=== PATIENT | female | born 1970 | race Caucasian/White ===

== ENCOUNTER 2023-06-28 08:26 | Outpatient (CLI) | payer MEDICAID, SELFPAY | END 2023-06-28 08:27 | disposition home or self-care (01) | PROVIDERS: PCP Family Medicine; Visit Provider Family Medicine | DX: E78.5 Hyperlipidemia, unspecified (principal); I10 Essential (primary) hypertension; N95.0 Postmenopausal bleeding; Z13.29 Encounter for screening for other suspected endocrine disorder | CPT/HCPCS: 80053; 80061; 82728; 84443 ==

== ENCOUNTER 2023-06-30 14:41 | Outpatient (CLI) | payer MEDICAID, SELFPAY ==
--- NOTE | 2023-06-30 15:00 | US_ITS ---
Patient: BRYN LANGE Facility:?[facility] R[facility] Patient ID:?[id number] Site Patient ID:?[id number]. Site :?[id number] Study:?US-Pelvis PELVIS TA & TV-06/30/2023 5:07:51 PM Ordering Physician:?LORE THOMPSON M.D. Final Report: INDICATION: Postmenopausal bleeding. TECHNIQUE: Transabdominal and transvaginal scanning was performed. Transvaginal scanning was performed to optimally evaluate the endometrium and adnexa. Ovarian blood flow was evaluated with color-flow doppler. COMPARISON: None. FINDINGS: The postmenopausal uterus is normal in size and shape. The uterus measures 6.8 x 3.7 x 4.2 cm. Pleura is an intramural or subserosal posterior uterine fundal fibroid measuring 1.5 cm is demonstrated as well as an intramural 0.6 cm superior fundal fibroid. The endometrial stripe is normal in thickness at 2 mm. The left ovary is not visualized. The right ovary is normal, measuring 2.2 x 1.7 x 1.2 cm. No adnexal mass is evident. No free fluid is demonstrated. IMPRESSION: Negative postmenopausal pelvic ultrasound except for several small fibroids, as above. Dictated by Yandel Warner MD @ 07/03/2023 7:49:33 AM Signed by:?Yandel Warner MD @07/03/2023 7:49:33 AM (Electronic Signature)
== END 2023-06-30 14:42 | disposition home or self-care (01) ==
LOC: US 14:42
PROVIDERS: PCP Family Medicine; Visit Provider Family Medicine
DX: N95.0 Postmenopausal bleeding (principal); D25.9 Leiomyoma of uterus, unspecified
CPT/HCPCS: 76830; 76856

== ENCOUNTER 2023-09-14 12:30 | Outpatient (RCR) | payer MEDICAID, SELFPAY ==
--- NOTE | 2023-09-07 15:06 | PT.OPEX ---
PT [place] Outpatient Eval PT [facility] Outpatient Eval Start: 09/07/23 12:37 Freq: Status: Active Protocol: Document 09/07/23 12:37 CRP (Rec: 09/07/23 13:37 CRP [id number]) E-signed By Brendan Oreilly PT Physical Therapy Outpatient Evaluation Insurance Information Recert Due Date 12/06/23 Insurance Name Medicaid,[facility] Medical Diagnosis Chronic LBP Referring MD Dr Mathew Subjective Subjective Pt has had many years of on and off again LBP. Goes to chiropractor. Does have daily LBP with burning pain into the hips. Pain can go all the way down either LE to the foot 2-3x/wk. Sleep is now very difficult as well. Had an injection in May. This did help for about a month. Has not done any specific exer for her low back. Pt had surgery to remove 1/2 of her colon in 2017. 2 yrs ago had hernia repairs. Does not feel she has gotten her strength back since the first surgery. Is dealing with diastasis. Works for [employer] at [facility] [employer] [facility]. This is seasonal only during the school year. Will now be off until November. When working she works about 29 hrs/week. Sx get worse with sitting, driving in car, walking/ standing on hard surfaces. Sitting is much more painful than standing and moving around. Pt can only sleep on her back without pain. Sleep is generally difficult. 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 Pts presentation is consistent with mechanical LBP and resulting radicular sxs into bilat LEs. Her status is characterized by painful hypomobility of L3-5, positive adverse neurodynamic signs, trunk weakness most notable with poor lumbopelvic neuromuscular control, loss of trunk ROM and general LE weakness with deconditioning. Skilled PT is necessary to incorporate ther ex, nm yazmin, manual therapy and pt education to decrease pain and improve functional mobility. 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 Pt will be independent with HEP in 8 weeks. 2. Pt will drive car for hour long trips with 80% decrease in pain in 10 weeks. 3. 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 Coordination/Communication With Referral Source Treatment Plan/Direct Interventions Joint Mobilization,Manual Therapy,Neuromuscular Re-ed, Self-Care/Home Management, Therapeutic Activities, Therapeutic Exercises Frequency/Duration 1-2x/wk for 12 weeks Patient Will Be Discharged From Therapy Completion of LTG(s),Skills Plateau,Independent w/HEP, Independently Progressing Evaluation Billing Untimed Code Treatment Minutes 30 Complexity Moderate Certification Information Initial Certification Date 09/07/23 Ending Certification Date 12/06/23 Provider Signature Required Yes Provider Signature Shows Agreement With POC & Medical Necessity Physician NPI Number Write NPI# Here Physician Comment/Change : Physician Signature & Date Requested Please Sign/Date Here
== END 2024-01-12 23:59 | disposition home or self-care (01) ==
PROVIDERS: PCP Family Medicine; Visit Provider Family Medicine
DX: M54.50 Low back pain, unspecified (principal); Z51.89 Encounter for other specified aftercare
CPT/HCPCS: 97110; 97140; 97162

== ENCOUNTER 2023-10-27 14:49 | Outpatient (CLI) | payer MEDICAID, SELFPAY ==
--- OUTSIDE RECORDS SUMMARY | 2023-10-27 14:52 | XMS_ITS | Clinical Summary ---
Author Organization [facility] Address [address] [address] Care Team Providers Care Long Chain Quiller Tender Name Role Phone Clinician, Not Found MD Primary Care Provider Un available Source Comments You are receiving this document as you are listed as the primary care provider,follow-up provider, or the patient has been referred to you for consultation.This is in compliance with the Medicare and[facility] EHR Incentive Program,which states Providers who transition their patient to another setting of careor provider of care or refers their patient to another provider of care shouldprovide summary care record for each transition of care or referral. [facility] Medications No known medications Active Problems No known active problems Social History Tobacco Use Types Packs/Day Years Used Date Smoking Tobacco: Never Assessed Sex and Gender Information Value Date Recorded Sex Assigned at Not on file Gender Identity Not on file Sexual Orientation Not on file Plan of Treatment Upcoming Encounters Date Type Department Care Team (Late st Contact Info) Description 11/15/2023 2:20 PM CDT Appointment [facility] [address] [facility] [place] [address] Elaine Espinoza MD [address] [facility] [place] [address] Health Maintenance Due Date Last Done Comments Cervical Cancer Screening Due 1970 Colon Cancer Screening Plan Due 1970 Hep C Screening (Preventive Services) 1970 Mammogram 1970 HIV Screening (Preventive Services) 1986 Adult Preventive Visit 02/16/1988 HepB (1) 1989 Cholesterol 2015 Zoster/Shingles (2 of 2) 04/29/2021 03/04/2021 COVID-19 Vaccine (5 - season) 2022 01/10/2022, 02/22/2021, 06/25/2020, Additional history exists Influenza (#1) 2023 01/10/2022, 12/0 10/2020, 11/29/2018, Additional history exists DTaP/Tdap/Td (3 - Tdap) 06/30/2027 06/30/19 18, 09/11/2010, 02/23/2000 HepA Aged Out No longer eligi ble based on patient's age to complete this topic Hib Aged Out No longer eligi ble based on patient's age to complete this topic IPV (Polio) Aged Out No longer eligi ble based on patient's age to complete this topic MCV4 Aged Out No longer eligi ble based on patient's age to complete this topic Pneumococcal Aged Out No longer eligi ble based on patient's age to complete this topic Care Teams Long Chain Quiller Tender Relationship Specialty Start Date End Date Clinician, Not Found, [facility] [place] [address] PCP - General 10/26/23
--- NOTE | 2023-10-27 15:00 | CRLHL7_ITS ---
For Patients: As a result of the Century Cures Act, medical imaging exams and procedure reports are released immediately into your electronic medical record. You may view this report before your referring provider. If you have questions, please contact your health care provider. BILATERAL SCREENING MAMMOGRAM WITH COMPUTER-AIDED DETECTION AND TOMOSYNTHESIS TECHNIQUE: CC and MLO views were obtained. These mammographic images have been obtained using full-field digital technique. These mammographic images were interpreted with the benefit of computer-aided detection. Breast tomosynthesis was used in this interpretation. COMPARISON FILM: None. This is a baseline study. FINDINGS: There are scattered areas of fibroglandular density. IMPRESSION: There is no radiographic evidence for malignancy. ASSESSMENT: BI-RADS Category 1: Negative RECOMMENDATION: Routine screening mammogram in 1 year. A lay language report of this examination will be provided to the patient. BOLA JOLLY M.D. Diagnostic Radiologist [email or web address] Transcribed: 1:[address]/Dictated by: Bola Jolly MD @ 10/28/2023 11:32:00 AM (Electronically Signed)
== END 2023-10-27 14:50 | disposition home or self-care (01) ==
LOC: MAMMO 14:50
PROVIDERS: PCP Family Medicine; Visit Provider Family Medicine
DX: Z12.31 Encounter for screening mammogram for malignant neoplasm of breast (principal)
CPT/HCPCS: 77063; 77067

== ENCOUNTER 2023-11-02 07:42 | Outpatient (CLI) | payer MEDICAID, SELFPAY ==
--- OUTSIDE RECORDS SUMMARY | 2023-11-06 06:52 | XMS_ITS | Clinical Summary ---
Author Organization [facility] Address [address], [place] [address] Care Team Providers Care Machine Brusher Name Role Phone Clinician, Not Found MD Primary Care Provider Un available Source Comments You are receiving this document as you are listed as the primary care provider,follow-up provider, or the patient has been referred to you for consultation.This is in compliance with the Medicare and[facility] Healthcaid EHR Incentive Program,which states Providers who transition [...] PM CDT Appointment [facility] [address] [place] [address] Elaine Espinoza MD [address] [facility] [place] [address] Health Maintenance Due Date Last Done Comments [...] age to complete this topic Care Teams Machine Brusher Relationship Specialty Start Date End Date Clinician, Not Found, [facility] [place] [address] PCP - General 10/26/23
== END 2023-11-02 07:43 | disposition home or self-care (01) ==
LOC: NFLDREF 11-06 06:50
PROVIDERS: PCP Family Medicine; Referring Provider Family Medicine; Visit Provider Family Medicine
DX: I10 Essential (primary) hypertension (principal); K76.0 Fatty (change of) liver, not elsewhere classified; E78.5 Hyperlipidemia, unspecified
CPT/HCPCS: 80053; 80061

== ENCOUNTER 2024-02-09 06:02 | Day surgery (SDC) | payer MEDICAID, SELFPAY ==
--- OUTSIDE RECORDS SUMMARY | 2024-02-09 06:04 | XMS_ITS | Encounter Summary ---
Author Organization [facility] Address [address] [address] Care Team Providers Care Pin Chaser Name Role Phone Clinician, Not Found MD Primary Care Provider Un available Reason for Referral * (Routine) - New Request Specialty Diagnoses / Procedures Referred By Contac t Referred To Contact Diagnoses Tendinopathy of gluteal region Procedures Triamcinolone Acet Inj Nos: (per 10 mg) Elaine Arboleda MD [address] [place] [address] [place] [id number] Referral ID Status Reason Start Date Expiration Date V isits Requested Visits Authorized [id number] New Request 11/15/2023 02/13/2025 1 1 Reason for Visit * Reason Comments HIP PAIN Encounter Details Date Type Department Care Team (Late st Contact Info) Description 11/15/2023 2:20 PM CDT Office Visit [facility] [address] [place], [place] [address] Elaine Arboleda MD [address] [place] [address] [place] [id number] Tendinopathy of gluteal region (Primary Dx); Lumbar radiculopathy Social History Tobacco Use Types Packs/Day Years Used Date Smoking Tobacco: Never Assessed Sex and Gender Information Value Date Recorded Sex Assigned at Not on file Gender Identity Not on file Sexual Orientation Not on file documented as of this encounter Progress Notes * Elaine Arboleda MD - 11/15/2023 12:00 AM CDT NAME: BRYN PAREKH CSN: [id number] CLINIC NOTE DATE OF SERVICE: 11/15/2023 : 1970 CHIEF COMPLAINT: Bilateral hip pain. HPI: This 53-year-old female returns today to follow up on her bilateral hip pain and chronic low back pain. Our last visit was on 05/30/2023, at which time she received bilateral trochanteric area steroid injections which were helpful. However, they only seem to last for about 3 months and now pain has been returning, left much worse than right. She is also still having numbness that radiates down the lateral leg towards her foot. She did 5 sessions of physical therapy, but symptoms persist. She would like to repeat a left trochanteric area steroid injection today. PROCEDURE NOTE: After a discussion of risks, benefits and side effects, the patient consented to a left trochanteric area steroid injection. Under sterile technique, 4 mL of 0.5% ropivacaine and 1 mLof triamcinolone 40 mg/mL were injected into the left trochanteric area. The procedure was well-tolerated and without complication. ASSESSMENT: 1.Bilateral gluteal tendinopathy, left greater than right today, status post left trochanter steroid injection. 2.Chronic low back pain with possible left L5 radiculopathy. PLAN: 1.Discussed diagnosis and treatment strategy. 2.Continue physical therapy home exercise program. 3.Recommended proceeding with an MRI of the lumbar spine and then consulting in our Spine [facility]. Consider epidural steroid injection if appropriate. 4.Continue activity as tolerated and symptomatic care measures as needed. ELAINE ARBOLEDA MD HLSheri/LEXIE /[id number] documented in this encounter Plan of Treatment Not on file documented as of this encounter Visit Diagnoses Diagnosis Tendinopathy of gluteal region- Primary Lumbar radiculopathy Thoracic or lumbosacral neuritis or radiculitis, unspecified documented in this encounter Care Teams Pin Chaser Relationship Specialty Start Date End Date Clinician, Not Found, [place] [address] PCP - General 10/26/23 documented as of this encounter
--- OUTSIDE RECORDS SUMMARY | 2024-02-09 06:04 | XMS_ITS | Clinical Summary ---
Author Organization [facility] Address [address], [place] [address] Care Team Providers Care Tool Grinder Name Role Phone Clinician, Not Found MD Primary Care Provider Un available Source Comments You are receiving this document as you are listed as the primary care provider,follow-up provider, or the patient has been referred to you for consultation.This is in compliance with the Medicare andMedicaid EHR Incentive Program,which states Providers who transition their patient to another setting of careor provider of care or refers their patient to another provider of care shouldprovide summary care record for each transition of care or referral. [facility] Medications No known medications Active Problems No known active problems Encounters Date Type Department Care Team Description 11/15/2023 2:20 PM CDT Office Visit [facility] [address] [place], [place] [address] Elaine Espinoza MD Tendinopathy of gluteal region (Primary Dx); Lumbar radiculopathy from Last 3 Months Social History Tobacco Use Types Packs/Day Years Used Date Smoking Tobacco: Never Assessed Sex and Gender Information Value Date Recorded Sex Assigned at Not on file Gender Identity Not on file Sexual Orientation Not on file Plan of Treatment Health Maintenance Due Date Last Done Comments Cervical Cancer Screening Due 1970 Colon Cancer Screening Plan Due 1970 Hep C Screening (Preventive Services) 1970 Mammogram 1970 HIV Screening (Preventive Services) 1986 Adult Preventive Visit 02/16/1988 HepB (1) 1989 Cholesterol 2015 COVID-19 Vaccine ( season) 2023 01/10/2022, 02/22/2021, 06/25/2020, Additional history exists Influenza (#1) 2023 01/10/2022, 12/0 10/2020, 11/29/2018, Additional history exists DTaP/Tdap/Td (3 - Tdap) 06/30/2027 06/30/19 18, 09/11/2010, 02/23/2000 Zoster/Shingles Completed 08/09/2023, 03/04/2021 HepA Aged Out No longer eligi ble based on patient's age to complete this topic Hib Aged Out No longer eligi ble based on patient's age to complete this topic IPV (Polio) Aged Out No longer eligi ble based on patient's age to complete this topic Infant RSV Aged Out No longer eligi ble based on patient's age to complete this topic MCV4 Aged Out No longer eligi ble based on patient's age to complete this topic Pneumococcal Aged Out No longer eligi ble based on patient's age to complete this topic Care Teams Tool Grinder Relationship Specialty Start Date End Date Clinician, Not Found, [facility] [place] [address] PCP - General 10/26/23
[2024-02-09 06:20] VITALS: BMI 34.2
[2024-02-09 06:26] VITALS: BP 111/92; PULSE 82; RESP 16; TEMP 36.8; O2SAT 94
[2024-02-09] MEDS: SODIUM CHLORIDE 0.9 % (FLUSH) 10 ML SYRINGE IVF (06:30)
[2024-02-09 06:40] LABS: Hemoglobin* 12.9 gm/dL (12.0-16.0)
[2024-02-09 06:55] LABS: Creatinine* 0.5 mg/dL (0.5-1.5); Est. Creatinine Clearance* 121.81; Estimated Glomerular Filt Rate 112 ml/min
--- NOTE | 2024-02-09 06:57 | W.PM.H&PU ---
History & Physical Update History & Physical Update H&P Reviewed and patient assessed: No changes noted H&P Updates: No more bleeding PV since last we saw each other in clinic.
--- NOTE | 2024-02-09 07:13 | W.PM.GYNPROC ---
Procedure Note Time Seen by Provider: 07:15 Date of procedure: 02/09/24 Will [facility] bill your pro fee for this procedure?: Yes Pre-op diagnosis: 1. Postmenopausal bleeding Post-op diagnosis: 1. Postmenopausal bleeding Procedure: 1. Hysteroscopy 2. Dilation and curettage Anesthesia: MAC Complications: None Surgeon: Eugenie Rodriguez MD IV fluids (mL): 0 Urine Output (mL): 25 Pathology: specimen obtained, sent to pathology Condition: stable Disposition: PACU Procedure Description: Estimated blood loss: <5 mL Specimen: Endometrial curettings to pathology. Findings: Exam under anesthesia: Cervix palpates normal and small. Uterus: Anteverted position, mobile, without nodularity/masses palpable. Adnexa were without fullness or nodularity. On hysteroscopy: Normal appearing endometrial cavity with atrophic endometrium. Arcuate at the fundus. Normal bilateral tubal ostia Procedure: Toyin was taken to the operating where conscious sedation was found to be adequate. She was placed in the dorsal lithotomy position. An exam under anesthesia was performed with findings stated above. She was then prepped and draped in normal sterile manner. A bivalve metal speculum was placed in the vaginal canal. The cervix and vaginal canal appear normal. The anterior lip of the cervix was then grasped with a long Allis clamp. The cervix was dilated to Hegar 6. The uterus sounded to 7 cm. The hysteroscope advanced into the uterus and a diagnostic hysteroscopy was performed with findings stated above. Normal saline was used as the insufflation medium. Soft tissue shaver was used to perform global curetting. The uterus and documented a normal appearing uterine cavity at the end of the procedure. Fluid deficit at the end of the procedure 170 mL. Total fluid: 590 mL The hysteroscope and tenaculum clamp were removed from the uterus and cervix. Excellent hemostasis noted. Nothing was used for hemostasis. The patient tolerated the procedure well. Sponge, lap and instruments counts were correct at the end of the procedure. The patient was awakened from anesthesia and taken to the recovery area in stable condition. Surgical debrief performed at the end of the procedure.
[2024-02-09 08:04] VITALS: BP 138/85; PULSE 82; RESP 14; TEMP 36.2; O2SAT 94
--- NOTE | 2024-02-09 08:04 | W.ANESCHARGE ---
Anesthesia Charges Start Date/Time Anesthesia Start Date: 02/09/24 Anesthesia Start Time: 07:12 Stop Date/Time Anesthesia Stop Date: 02/09/24 Anesthesia Stop Time: 08:04
--- NOTE | 2024-02-09 08:14 | W.ANESCHARGE ---
Anesthesia Charges Start Date/Time Anesthesia Start Date: 02/09/24 Anesthesia Start Time: 07:12 Stop Date/Time Anesthesia Stop Date: 02/09/24 Anesthesia Stop Time: 08:04
[2024-02-09 08:15] VITALS: BP 131/88; PULSE 79; RESP 16; O2SAT 93
[2024-02-09] MEDS: ACETAMINOPHEN 500 MG TABLET 1000 MG PO (08:24)
[2024-02-09 08:30] VITALS: BP 122/81; PULSE 82; RESP 16; O2SAT 95
[2024-02-09 08:45] VITALS: BP 126/78; PULSE 74; RESP 16; O2SAT 93
== END 2024-02-09 09:00 | disposition home or self-care (01) ==
LOC: OR 06:03
PROVIDERS: PCP Family Medicine; Visit Provider Obstetrics & Gynecology
PROC: 0UDB8ZZ Extraction of Endometrium, Via Natural or Artificial Opening Endoscopic (ICD-10-PCS; CPT 58558; principal; 2024-02-09 07:15)
DX: N95.0 Postmenopausal bleeding (principal); N85.8 Other specified noninflammatory disorders of uterus
CPT/HCPCS: 58558; 00952; 36415; 82565; 85018; 86850; 86900; 86901; 88305; A9270; C1782; J1100; J1885; J2405; J2704; J3010

== ENCOUNTER 2024-02-28 20:10 | Outpatient (CLI) | payer MEDICAID, SELFPAY ==
--- OUTSIDE RECORDS SUMMARY | 2024-02-28 20:19 | XMS_ITS | Clinical Summary ---
Author Organization [facility] Address [address], [place] [address] Care Team Providers Care Pyrotechnist Name Role Phone Clinician, Not Found MD Primary Care Provider Un available Source Comments You are receiving this document as you are listed as the primary care provider,follow-up provider, or the patient has been referred to you for consultation.This is in compliance with the Medicare and[facility] EHR Incentive Program,which states Providers who transition [...] on patient's age to complete this topic RSV Aged Out No longer eligi ble based on patient's age to complete this topic MCV4 Aged Out No longer eligi ble based on patient's age to complete this topic Pneumococcal Aged Out No longer eligi ble based on patient's age to complete this topic Care Teams Pyrotechnist Relationship Specialty Start Date End Date Clinician, Not Found, [place] [address] PCP - General 10/26/23
--- NOTE | 2024-03-07 08:26 | W.PM.SLEEP ---
Sleep Study Details Details Interpreting Provider: Jairo Date of Sleep Study: 02/28/24 Sleep Study Details: STUDY TYPE:? Hospital-based, attended, CPAP titration ? BMI:? 35.2 ORDERING PROVIDER:? Priyanka INDICATION:? Concern about sleep apnea ? SLEEP SUMMARY:? 358 minutes total sleep time RESPIRATORY SUMMARY:? Mean oxygen awake 91 asleep 89, minimum 81 97.9 minutes oxygen between 80 and 88% AHI 112.4, supine 203, nonsupine 106 there was no REM stage sleep seen during the diagnostic portion of the study. CPAP titration was attempted a pressure of 18 the patient's AHI decreased to 0 and supine REM sleep was seen. This would be considered a successful titration PERIODIC LIMB MOVEMENTS OF SLEEP:? None CARDIAC:? Awake 85, asleep 86. No arrhythmias noted IMPRESSION:? Very severe obstructive sleep apnea with supine position dependency. CPAP titration was successful at a pressure of 18 and included supine REM sleep. RECOMMENDATION: Initiate CPAP and AutoSet pressure of 15-18. The patient does not tolerate CPAP would switch to bilevel.
== END 2024-02-28 20:11 | disposition home or self-care (01) ==
LOC: SLEEP 20:18
PROVIDERS: PCP Family Medicine; Visit Provider Family Medicine
DX: G47.33 Obstructive sleep apnea (adult) (pediatric) (principal); G47.31 Primary central sleep apnea
CPT/HCPCS: 95811

== ENCOUNTER 2024-03-12 10:32 | Outpatient (CLI) | payer SELFPAY | END 2024-03-12 10:33 | disposition home or self-care (01) | LOC: NFLDREF 10:32 | PROVIDERS: PCP Family Medicine; Visit Provider Obstetrics & Gynecology | DX: R23.2 Flushing (principal) | CPT/HCPCS: 80053 ==

== ENCOUNTER 2024-03-15 13:19 | Outpatient (CLI) | payer OTHER, SELFPAY ==
--- NOTE | 2024-03-15 13:45 | CRLHL7_ITS ---
For Patients: As a result of the 21st Century Cures Act, medical imaging exams and procedure reports are released immediately into your electronic medical record. You may view this report before your referring provider. If you have questions, please contact your health care provider. EXAM: MRI OF THE RIGHT ANKLE, WITHOUT CONTRAST CLINICAL INDICATION: Ankle pain swelling. COMPARISON PLAIN FILMS: 02/17/2024. COMPARISON CROSS-SECTIONAL IMAGING STUDIES: None. TECHNICAL: Axial, sagittal and coronal T1, PD, PD FS and STIR images. FINDINGS: OSSEOUS STRUCTURES: Small cortical avulsion fracture with periosteal injury and periosteal thickening in the posterior malleolus accounts for the radiographic abnormality. Findings consistent with the high-grade syndesmotic injury. No additional fractures are evident. No osseous lesion. JOINT SPACES: Large ankle joint effusion with mild synovitis. No loose body. The articular cartilage is intact. The subtalar joints are maintained. The talonavicular and calcaneocuboid joint spaces are maintained. Joint spaces within the visualized midfoot and at the midfoot forefoot junction are maintained. LIGAMENTS: Syndesmotic Ligaments: There is a full-thickness tear of the anterior inferior tibiofibular ligament at the tibial insertion with diffuse thickening and heterogeneity of the ligament. There is an additional injury of the interosseous membrane and posterior inferior tibiofibular ligament and the posterior malleolar periosteum. Lateral Ligaments: The anterior talofibular ligament is intact. The calcaneofibular ligament is intact. The posterior talofibular ligament is intact. Medial Ligaments: The superficial and deep components of the deltoid ligament complex are maintained. Spring Ligaments: The calcaneonavicular spring ligament complex is intact. TENDONS: Flexor Tendons: The posterior tibial, flexor digitorum longus and flexor hallucis longus tendons are intact. Extensor Tendons: The anterior extensor tendons are intact. Achilles Tendon: The Achilles tendon is intact without tendinosis, tear or peritendinitis changes. Peroneal Tendons: Partial-thickness longitudinal tear of the peroneus brevis tendon at and distal to the retromalleolar groove with mild tendinopathy. The peroneus longus tendon is intact. No tenosynovitis. No subluxation of the peroneal tendons. TARSAL TUNNEL: The soft tissues of the tarsal tunnel are normal without mass or fluid collection. No abnormality along the course of the medial or lateral plantar nerves. SINUS TARSI: The structures of the sinus tarsi appear normal. No disruption of the interosseous ligaments or significant effacement of fat. PLANTAR SOFT TISSUES: The plantar fascia is intact. No atrophy or edema of the abductor digiti minimi muscle belly. SOFT TISSUES: Prominent anterolateral and moderate medial subcutaneous edema. IMPRESSION: 1. High-grade syndesmotic injury with tear of the anterior inferior tibiofibular ligament, distal syndesmosis, posterior inferior tibiofibular ligament and small avulsion fracture with periosteal injury in the posterior malleolus. 2. Large ankle joint effusion with mild synovitis. 3. Medial and lateral subcutaneous edema. Dictated by Jeromy Mendosa MD @ 03/16/2024 11:39:41 AM (Electronically Signed)
== END 2024-03-15 13:20 | disposition home or self-care (01) ==
PROVIDERS: PCP Family Medicine; Visit Provider Family Medicine
DX: M25.571 Pain in right ankle and joints of right foot (principal); S93.431A Sprain of tibiofibular ligament of right ankle, initial encounter; M25.471 Effusion, right ankle; S82.891A Other fracture of right lower leg, initial encounter for closed fracture; S99.911A Unspecified injury of right ankle, initial encounter; M95.8 Other specified acquired deformities of musculoskeletal system
CPT/HCPCS: 73721

== ENCOUNTER 2024-05-23 10:05 | Outpatient (CLI) | payer MEDICAID, SELFPAY | END 2024-05-23 10:06 | disposition home or self-care (01) | PROVIDERS: PCP Family Medicine; Visit Provider Family Medicine | DX: M54.16 Radiculopathy, lumbar region (principal); M51.26 Other intervertebral disc displacement, lumbar region; M48.061 Spinal stenosis, lumbar region without neurogenic claudication; R29.898 Other symptoms and signs involving the musculoskeletal system | CPT/HCPCS: 72148 ==

== ENCOUNTER 2024-09-04 10:51 | Outpatient (CLI) | payer MEDICAID, SELFPAY | END 2024-09-04 10:52 | disposition home or self-care (01) | LOC: INJ CL 10:52 | PROVIDERS: PCP Family Medicine; Visit Provider Family Medicine | DX: M54.16 Radiculopathy, lumbar region (principal); M48.062 Spinal stenosis, lumbar region with neurogenic claudication; M51.369 Other intervertebral disc degeneration, lumbar region without mention of lumbar back pain or lower extremity pain | CPT/HCPCS: 62323; J0702; Q9966 ==

== ENCOUNTER 2024-09-10 11:10 | Outpatient (CLI) | payer MEDICAID, SELFPAY | END 2024-09-10 11:11 | disposition home or self-care (01) | LOC: NFLDREF 09-14 08:51 | PROVIDERS: PCP Family Medicine; Referring Provider Family Medicine; Visit Provider Family Medicine | DX: Z00.00 Encounter for general adult medical examination without abnormal findings (principal); I10 Essential (primary) hypertension; E78.5 Hyperlipidemia, unspecified; R73.01 Impaired fasting glucose; R79.89 Other specified abnormal findings of blood chemistry; E66.9 Obesity, unspecified; R74.8 Abnormal levels of other serum enzymes; Z11.59 Encounter for screening for other viral diseases | CPT/HCPCS: 80053; 80061; 86803; 87340 ==

== ENCOUNTER 2024-09-25 09:09 | Outpatient (CLI) | payer MEDICAID, SELFPAY ==
--- NOTE | 2024-09-25 09:15 | CRLHL7_ITS ---
For Patients: As a result of the Century Cures Act, medical imaging exams and procedure reports are released immediately into your electronic medical record. You may view this report before your referring provider. If you have questions, please contact your health care provider. INDICATION: Abnormal lab values COMPARISON: none TECHNIQUE: Real time barnard scale imaging and color Doppler analysis was performed of the right upper quadrant. FINDINGS: The liver measures 18.6 cm. Liver echotexture is diffusely increased. There is a normal appearance of the hepatic IVC and proximal abdominal aorta. There is no evidence of ascites. The gallbladder is of normal size and there is no evidence of intraluminal stones or sludge. The gallbladder wall measures 3 mm in thickness. The common bile duct is of normal size and measures 4 mm in diameter at the level of the jaylen hepatis. The pancreas is not visualized due to overlying bowel gas. There is no evidence of a stone or hydronephrosis within the right kidney. The right kidney measures 10.9 cm in length. IMPRESSION: Hepatomegaly with severe diffuse hepatic steatosis. Dictated by Bola Rojas MD @ 09/25/2024 12:02:15 PM (Electronically Signed)
--- OUTSIDE RECORDS SUMMARY | 2024-09-26 00:48 | XMS_ITS | Clinical Summary ---
Author Organization [facility] Address [address], [place] [address] Care Team Providers Care Race And Sports Book Writer Name Role Phone Clinician, Not Found MD Primary Care Provider Un available Source Comments You are receiving this document as you are listed as the primary care provider,follow-up provider, or the patient has been referred to you for consultation.This is in compliance with the Medicare and[facility] EHR Incentive Program,which states Providers who transition their patient to another setting of careor provider of care or refers their patient to another provider of care shouldprovide summary care record for each transition of care or referral. 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 Gender Identity Not on file Sexual Orientation Not on file Plan of Treatment Health Maintenance Due Date Last Done Comments Cervical Cancer Screening Due 1970 Colon Cancer Screening Plan Due 1970 Hep C Screening (Preventive Services) 1970 Mammogram 1970 HIV Screening (Preventive Services) 1986 Adult Preventive Visit 02/16/1988 HepB Vaccine (1) 1989 Cholesterol 2015 Pneumococcal Vaccine 50+ Yrs (1 of 1 - PCV) 02/16/2020 COVID-19 Vaccine ( season) 2023 01/10/2022, 02/22/2021, 06/25/2020, Additional history exists Influenza Vaccine (Season Ended) 2024 01/10/2022, 03/04/2021, 11/29/2018, Additional history exists DTaP/Tdap/Td Vaccine (3 - Tdap) 06/30/2027 06/29/2017, 09/11/2010, 02/23/2000 Zoster/Shingles Vaccine Completed 08/09/2023, 03/04 HepA Vaccine Aged Out No longer eligi ble based on patient's age to complete this topic Hib Vaccine Aged Out No longer eligi ble based on patient's age to complete this topic IPV (Polio) Vaccine Aged Out No longe r eligible based on patient's age to complete this topic MCV4 Vaccine Aged Out No longer eligi ble based on patient's age to complete this topic Meningococcal B Vaccine Aged Out No l onger eligible based on patient's age to complete this topic Insurance [facility] Care Teams Race And Sports Book Writer Relationship Specialty Start Date End Date Clinician, Not Found, [place] [address] PCP - General 10/26/23
--- OUTSIDE RECORDS SUMMARY | 2024-09-26 00:48 | XMS_ITS | Clinical Summary ---
Author Organization [facility] Address [address] [place] [address] Care Team Providers Care Baggage Agent Name Role Phone Kaley Mathew MD Primary Care Provider + Jimmy Montalvo MD Unavailable [phone] Allergies Active Allergy Reactions Criticality Noted Date Comments Azithromycin Rash 12/20/2018 Medications traMADol (ULTRAM) 50 mg tabletIndication s:Abdominal pain, unspecified abdominal location,Periumb ilical hernia Take 1 tablet by mouth every 6 hours if needed for Pain. 8 tablet 12/20/2018 8:12 PM CDT 12/20/2018 Active Active Problems No known active problems Encounters Date Type Department Care Team Description 09/04/2024 11:20 AM CDT Office Visit [facility] [address] [place] [id number] Jeromy Johnson MD Procedure (L3-4 ILESI) 08/15/2024 Transcribe Orders [facility] [address] [place] [address] Jeromy Johnson MD 08/15/2024 Telephone [facility] [address] [place] [address] Jeromy Johnson MD Error-please disregard from Last 3 Months Social History Tobacco Use Types Packs/Day Years Used Date Smoking Tobacco: Never Assessed Comments No Sex and Gender Information Value Date Recorded Sex Assigned at Not on file 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 Gender Identity Not on file Sexual Orientation Not on file Obstetrics History Last Filed Vital Signs Vital Sign Reading Time Taken Comments Blood Pressure 154/99 12/20/2018 2:28 PM CDT Pulse 91 12/20/2018 2:28 PM CDT Temperature 36.4 C (97.5 F) 12/20/2018 2:28 PM CDT Respiratory Rate 16 12/20/2018 2:28 PM CDT Oxygen Saturation 95% 12/20/2018 2:28 PM CDT Inhaled Oxygen Concentration - - Weight 90.7 kg (200 lb) 12/20/2018 2:28 PM CDT Height 167.6 cm (5' 6) 12/20/2018 2:28 PM CDT Body Mass Index 32.28 12/20/2018 2:28 PM CDT Plan of Treatment Health Maintenance Due Date Last Done Comments (IA) Tdap 1981 Depression screening for age 12+ 1982 HIV for age 15-65 1985 BMI (ht and wt on same day) for age 18+ 02/16/1988 Hepatitis C screening for ag e 18-79 02/16/1988 Hepatitis B series for 19+ ( 1 of 3 - 19+ 3-dose series) 1989 Tetanus booster 1990 Colonoscopy through age 75 2015 Lipids for age 45-75 2015 Mammogram for age 45-75 2015 Pneumococcal series for age 50+ (1 of 1 - PCV) 02/16/2020 Zoster (shingles) series for age 50+ (1 of 2) 02/16/2020 Influenza Vaccine (Season Ended) 2024 Pap test for age 21-65 08/08/2026 08/09/2023, 2023 COVID-19 vaccine series Completed 01/03/20 24, 01/10/2022, 02/22/2021, Additional history exists Procedures Procedure Name Priority Date/Time Associated Diagnosis Comments AMB EPIDURAL STEROID INJECTION Routine 09/04/2024 12:00 AM CDT Spinal stenosis, lumbar region, with neurogenic claudication HPV HIGH RISK Routine 08/09/2023 1:22 PM CDT from Last 3 Months or Most Recently Relevant to Health Maintenance Results * AMB EPIDURAL STEROID INJECTION (09/04/2024 12:00 AM CDT) Jeromy Johnson MD NEUROLOGY ORD Final Resu lt * HPV HIGH RISK (08/09/2023 1:22 PM CDT) TYPE 16 Negative Negative 08/12/2023 11:45 AM CDT [facility] TYPE 18 Negative Negative 08/12/2023 11:45 AM CDT [facility] OTHER HIGH RISK TYPES Negative Negative 08/12/2023 11:45 AM CDT [facility] Other (Cervical/Vagina l) 08/09/2023 1:22 PM CDT 08/10/2023 5:01 PM CDT Narrative [facility] - 08/12/2023 11:45 AM CDT HPV types 16, 18, 31, 33, 35, 39, 45, 51, 52, 56, 58, 59, 66 and 68 DNA were undetectable or below the pre-set threshold. Methodology: Rosibel Carlyle 4800 HPV Test us Kaley Mathew MD MICROBIOLOGY Final Re sult [facility] [address] [place] [address], from Last 3 Months or Most Recently Relevant to Health Maintenance Insurance [facility] Care Teams Baggage Agent Relationship Specialty Start Date End Date Kaley Mathew MD [address] [place] [address] PCP - General Family Practice 08/15/24 Jimmy Montalvo MD [address] [place] [id number] Family Practice 08/15/24
--- OUTSIDE RECORDS SUMMARY | 2024-09-26 00:48 | XMS_ITS | Patient Health Record ---
Author Organization [facility] Address [address] [id number] Care Team Providers Care Ropewalk Rope Maker Name Role Phone Tori Morales Primary Care Provider Allergies Allergen (clinical drug ingredient) Drug/Non Drug Allergy documented on EMR Reaction Allergy Type Onset Date Status penicillin V Penicillin V Potassium Unknown Drug Allergy Active erythromycin Erythromycin erythromycin GI upset, can tolerate azithromycin Drug Allergy Active Reason For Referral No Information Medications Medication SIG (Take, Route, Frequency, Duration) Notes Start Date End Date Status Dicyclomine HCl 10 MG 1 cap(s) orally 3 times a day as needed Not-Taking amLODIPine Besylate 5 MG TAKE 1 TABLET B Y MOUTH EVERY DAY; Duration: 30 Active Pantoprazole Sodium 40 MG 1 tab(s) orall y once a day; Duration: 30 days 10/11/2018 Active ProAir HFA 108 (90 Base) MCG/ACT 2 puff(s) inhaled every 4 hours as needed for cough or shortness of breath 05/29/2018 Not-Taking Lansoprazole 30 MG 1 cap(s) orally once a day Not-Taking Citalopram Hydrobromide 40 MG 1 tab(s) orally once a day; Duration: 90 days Active Ibuprofen 200 MG 4 tab(s) orally ever y 6 hours as needed Active Immunizations Vaccine Route Administration Date Status Comme nts Tdap (Adacel 11-64 yrs) IM Intramuscular 09/11/2010 Admini stered Td (7 yrs and Older) Unknown 02/23/2000 Administered Td (7 yrs and Older) IM Intramuscular 06/29/2017 Administe red MMR Unknown 12/06/1990 Administered Influenza 6 months and older WITH Preservative Unknown 12/08/2016 Administered Influenza 6 months and older WITH Preservative IM Intramuscular 11/29/2018 Administered Influenza (Flulaval) 3 years and up WITH preservative Unknown 03/20/2016 Administered Social History Tobacco Use: Social History Observation Description Date Details (start date - stop date) Never Smoker NA - NA Tobacco Status Question Answer Notes I am: never smoker Problems Problem Type SNOMED Code ICD Code Onset Dates Problem Status W/U Status Risk Notes Problem Recurrent major depression in complete remission (64541507) Major depressive disorder, recurrent episode, in full remission (F33.42) Active confirmed Problem Vitamin D deficiency (49013806) Vitamin D deficiency (E55.9) Active confirmed Problem Menopause (214137471) Perimenopausal vasomotor symptoms (N95.1) Active confirmed Problem Benign essential hypertension (4338385) Benign essential hypertension (I10) Active confirmed Problem Thrombocytopenia (859439086) Thrombocytopenia (D69.6) Active confirmed Problem Gastro-esophageal reflux disease without esophagitis (220401763) Gastro-esophageal reflux disease without esophagitis (K21.9) Active confirmed Problem Steatosis (04799566) Steatosis (E78.89) Active confirmed Problem Degeneration of cervical intervertebral disc (70588390) Degenerative disc disease, cervical (M50.30) Active confirmed Problem Stomach upset (661786318) Stomach upset (K30) Active confirmed Problem Hemorrhage of colon due to diverticulosis (211238615821260) Diverticulosis large intestine w/o perforation or abscess w/bleeding (K57.31) Active confirmed Problem Gastroesophageal reflux disease with esophagitis (disorder) (477486440) GERD with esophagitis (K21.0) Active confirmed Problem Constipation (37824932) Constipation, unspecified constipation type (K59.00) Active confirmed Problem Cervical post-laminectomy syndrome (224433501) Cervical post-laminectomy syndrome (M96.1) Active confirmed Problem Irritable bowel syndrome (13923594) Irritable bowel syndrome with both constipation and diarrhea (K58.2) Active confirmed Problem History of excision of intestinal structure (560332400) Status post laparoscopic-santino lavell sigmoidectomy (Z90.49) Active confirmed Problem Postprocedural states (996033460) History of thumb surgery (Z98.890) Active confirmed Plan Of Treatment No Information Insurance Providers Payer Name Payer Address Payer Phone Subscriber Number Group Number Insured Name Patient Relationship to Insured Coverage Start Date Coverage End Date [facility] [address] [place], [place] [id number] Shital Parekh Self - patient is the insured 3 Medical (General) History Medical History History ICD Code Esophageal reflux depression anxiety diverticulitis Surgical History Surgery Date(Month/Year) UCL repair, right thumb 11/15/2022 Incarcerated ventral incisio nal herniorrhaphy scopic with lysis of adhesions 01/11/2019 Laminotomy/Foraminotomy/ Decompression ( cervical) 05/26/17 polyp removal 05/26/2016 No personal or family history of anesthe kianna problems Sigmod colectomy with explor atory laparotomy, mobilization of splenic flexure with primary colorectostomy and anal exam. 03/18/2016 septoplasty and sinus surgery 2007 Augmentation mammoplasty 1997 No personal or family history of bleedin g problems Hospitalization History Reason Date(Month/Year) Hypertension 06/21-06/22/2016 ER visit [facility] 12/2018
== END 2024-09-25 09:10 | disposition home or self-care (01) ==
LOC: US 09:11
PROVIDERS: PCP Family Medicine; Visit Provider Family Medicine
DX: R79.89 Other specified abnormal findings of blood chemistry (principal); R16.0 Hepatomegaly, not elsewhere classified; K76.0 Fatty (change of) liver, not elsewhere classified; R74.8 Abnormal levels of other serum enzymes
CPT/HCPCS: 76705

== ENCOUNTER 2024-10-03 09:58 | Outpatient (CLI) | payer MEDICAID, SELFPAY ==
--- NOTE | 2024-10-03 10:15 | CRLHL7_ITS ---
For Patients: As a result of the Century Cures Act, medical imaging exams and procedure reports are released immediately into your electronic medical record. You may view this report before your referring provider. If you have questions, please contact your health care provider. INDICATION: Neck pain. Right shoulder and arm pain. COMPARISON: None. TECHNIQUE: Sagittal T1, T2 and STIR sequences. Patient was unable to complete the remainder of the exam due to claustrophobia and pain. FINDINGS: Limited study. Axial images not obtained. Based on the acquired sagittal sequences, normal vertebral body facet alignment. No fractures. No vertebral body loss of height. No spondylosis. No evidence injury. Normal cord signal. Mild cervical spondylosis with multilevel disc degeneration. Overall, no severe spinal canal narrowing at all levels of the cervical spine. IMPRESSION: 1. Limited study. 2. Based on the acquired sequences, normal alignment. No fractures. 3. No spondylolisthesis. 4. Normal cord signal. 5. No severe spinal canal narrowing at all levels Dictated by Golden Jimenez MD @ 10/04/2024 4:38:19 PM (Electronically Signed)
== END 2024-10-03 09:59 | disposition home or self-care (01) ==
LOC: MRI 09:59
PROVIDERS: PCP Family Medicine; Visit Provider Family Medicine
DX: M54.2 Cervicalgia (principal); M54.12 Radiculopathy, cervical region; M47.812 Spondylosis without myelopathy or radiculopathy, cervical region; M25.511 Pain in right shoulder
CPT/HCPCS: 72141

== ENCOUNTER 2025-01-15 10:15 | Outpatient (CLI) | payer MEDICAID, SELFPAY | END 2025-01-15 10:16 | disposition home or self-care (01) | LOC: NFLDREF 01-18 13:05 | PROVIDERS: PCP Family Medicine; Referring Provider Family Medicine; Visit Provider Family Medicine | DX: K76.0 Fatty (change of) liver, not elsewhere classified (principal) | CPT/HCPCS: 80053; 82977 ==